=== PATIENT | male | born 1980 | race Hispanic/Latino ===

== ENCOUNTER 2024-09-10 20:40 | Inpatient (IN) | payer BC ==
[~2024-09-10] VITALS: Ht 172.7 cm; Wt 99.8 kg
[2024-09-10] MEDS: 0.9%NACL 1000ML 1,000 ML IV SCH (01:00)
[2024-09-10] MEDS: NOREPINEPHRIN 4MG/NS 250ML 250 ML IV ONE ×2 (20:49→23:28)
[2024-09-10 21:28] LABS: BASOPHILS # (AUTO) 0.01 K/uL (0.00-0.20); BASOPHILS % (AUTO) 0.3 % (0.0-5.0); HEMATOCRIT 41.3 % (42-54); IMMATURE GRANULOCYTE ABSOLUTE 0.01 K/uL (0-1); LYMPHOCYTES # (AUTO) 1.1 K/uL (1.0-4.8); LYMPHOCYTES % (AUTO) 32.9 % (21.0-51.0); MEAN CORPUSCULAR HEMOGLOBIN 35.1 pg (27.0-33.0); MEAN CORPUSCULAR HGB CONC 36.1 g/dL (32.0-36.0); MEAN CORPUSCULAR VOLUME 97.2 fL (79-99); MONOCYTES # (AUTO) 0.3 K/uL (0.1-1.0); MONOCYTES % (AUTO) 8.5 % (3.0-13.0); NEUTROPHILS # (AUTO) 1.9 K/uL (1.8-7.7); PLATELET COUNT (AUTO) 130 K/uL (130-400); RED BLOOD CELL COUNT(AUTO) 4.25 MIL/uL (4.50-6.20); RED CELL DISTRIBUTION WIDTH 11.9 % (11.0-15.5); WHITE BLOOD COUNT (AUTO) 3.2 K/uL (4.8-10.8)
[2024-09-10 21:32] LABS: ABG BASE EXCESS -24.6 mmol/L (-2.0-3.0); ABG OXYGEN SATURATION 91.6 % (94.0-98.0); ABG PCO2 87 mmHg (35-48); ABG PH 6.758 (7.350-7.450); CARBON MONOXIDE 0.5 % (0.5-1.5); DEVICE COMMENT LEFT RAD; HHb 8.3; PO2, ARTERIAL BG 105.7 mmHg (83.0-108.0); VENT MODE, BG AC (ROOM AIR)
[2024-09-10 21:35] VITALS: O2SAT 95
[2024-09-10 21:46] LABS: CREATININE 3.7 mg/dL (0.5-1.3)
[2024-09-10 21:47] LABS: POTASSIUM 2.3 mmol/L (3.5-5.1)
[2024-09-10] MEDS: SODIUM BICARB 50MEQ 50ML VIAL IV ONE ×4 (21:55→23:33)
[2024-09-10 21:56] LABS: INR 1.44 (0.85-1.15); PROTHROMBIN TIME 15.1 SEC (9.6-11.6)
[2024-09-10] MEDS: NOREPINEPHRIN 4MG/NS 250ML 250 ML IV SCH (21:56)
[2024-09-10 21:57] LABS: PARTIAL THROMBOPLASTIN TIME 54.4 SEC (26.3-35.5)
[2024-09-10] MEDS ORDERED: POTASSIUM CHLORIDE IV SCH (22:00)
[2024-09-10] MEDS ORDERED: [UNRECOGNIZED DRUG - OTHER] IV SCH (22:00)
[2024-09-10 22:06] LABS: SARS-CoV-2, RNA, NAAT NEGATIVE SARS CoV-2 (NEGATIVE)
[2024-09-10 22:09] LABS: INFLUENZA TYPE A Negative For Type A (NEGATIVE); INFLUENZA TYPE B Negative For Type B (NEGATIVE)
[2024-09-10 22:24] LABS: BAND NEUTROPHILS % (MANUAL) 4 % (0-2); LYMPHOCYTES % (MANUAL) 31 % (22-44); MAN.DIFF COMMENT-IMPRESSION MANUAL DIFFERENTIAL; MONOCYTES % (MANUAL) 31 % (2-9); REACTIVE LYMPHOCYTES 5 % (0-0); SEGMENTED NEUTROPHILS % 29 % (40-70); TOTAL CELLS COUNTED 100
[2024-09-10] MEDS ORDERED: phenylEPHRINE HCL 100 MG in 0.9% NACL 250ML 250 ML IV SCH (22:30)
[2024-09-10] MEDS: phenylEPHRINE HCL 50 MG in 0.9% NACL 250ML 250 ML IV PRN (22:36)
[2024-09-10] MEDS: PoTASSium chloRIDE 20MEQ/100ML 100 ML IV ONE ×2 (22:36→23:12)
[2024-09-10] MEDS: VASOpressin 20 UNITS/ML 1ML Vi 40 UNITS in 0.9%NACL 50ML 40 ML IV SCH (22:38)
[2024-09-10] MEDS: NOREPINEPHRINE BITARTRATE 32 MG in 0.9% NACL 250ML 250 ML IV SCH (22:42)
[2024-09-10] MEDS: IpraTROPium/alBUTERol SULFATE 3 ML SOLUTION IH ONE ×2 (22:43)
[2024-09-10] MEDS: hydroCORTisone SOD SUCCINATE 100 MG/2 ML VIAL IV ONE (22:44)
[2024-09-10] MEDS: ALBUMIN (HUMAN) 25% 50 ML IV SCH (22:44)
[2024-09-10] MEDS: SODIUM BICARB 8.4% 50ML SYRING 150 MEQ in DEXTROSE 5%-WATER 1,000 ML IVP SCH (22:55)
[2024-09-10] MEDS ORDERED: ondanSETRON 4MG INJ IVP PRN (23:00)
[2024-09-10] MEDS ORDERED: acetaMINOPHEN 325 MG TAB PO PRN (23:00)
[2024-09-10] MEDS ORDERED: TEMAZepam 15 MG CAPSULE PO PRN (23:00)
[2024-09-10] MEDS ORDERED: LACTULOSE 20 GM/30 ML UDCUP PO PRN (23:00)
[2024-09-10] MEDS ORDERED: doCUSate SODIUM 100 MG CAP PO PRN (23:00)
[2024-09-10] MEDS ORDERED: acetaMINOPHEN 650 MG SUPPOSITORY RC PRN (23:00)
[2024-09-10 23:01] VITALS: PULSE 110; RESP 22
[2024-09-10] MEDS: ALBUTEROL 0.083% 2.5 MG/3 ML INH IH SCH (23:01)
[2024-09-10] MEDS: IpraTROPium 0.5 MG/2.5 ML INH IH SCH (23:01)
[2024-09-10 23:02] VITALS: PULSE 113; RESP 22
[2024-09-10 23:13] LABS: ABG BASE EXCESS -18.8 mmol/L (-2.0-3.0); ABG HCO3 17.1 mmol/L (21.0-28.0); ABG OXYGEN SATURATION 80.6 % (94.0-98.0); ABG PCO2 104 mmHg (35-48); ABG PH 6.835 (7.350-7.450); CARBON MONOXIDE 0.1 % (0.5-1.5); DEVICE COMMENT A LINE; HHb 19.2; PO2, ARTERIAL BG 71.5 mmHg (83.0-108.0); VENT MODE, BG AC (ROOM AIR)
[2024-09-10] MEDS: VASOpressin 20 UNITS/ML 1ML VIAL ONE (23:16)
[2024-09-10] MEDS: phenylEPHRINE HCL 10 MG/ML 1ML VIAL IV ONE (23:28)
[2024-09-10] MEDS ORDERED: MAGNESIUM 2GM PREMIX 50ML 50 ML IV SCH (23:30)
[2024-09-10] MEDS: EPINEPHrine PF 1MG (1:1,000) 10 MG in 0.9% NACL 250ML 250 ML IV SCH (23:30)
[2024-09-10] MEDS: ceFEPime HCL 1 GM VIAL IVPB SCH (23:32)
[2024-09-10] MEDS: TRANEXAMIC ACID 1000MG/10ML IV STA (23:32)
[2024-09-10 23:35] VITALS: TEMP 95.3
[2024-09-10 23:54] VITALS: BP 157/114; PULSE 123; RESP 28; TEMP 99.1
[2024-09-10 23:58] VITALS: BP_SYST 137; BP_SYST 89; BP_DIAS 70; BP_DIAS 84; PULSE 122; RESP 28
[2024-09-11] VITALS (23 sets, daily range): BP systolic 9–159; BP diastolic 8–96; PULSE 28–122; RESP 4–30; O2SAT 45–85
[2024-09-11] MEDS ORDERED: VECURONIUM 10MG/10ML 50 MG in 0.9%NACL 50ML 50 ML IV SCH
[2024-09-11] MEDS: ALBUMIN (HUMAN) 5% 250 ML IV STA (00:35)
[2024-09-11] MEDS: PANTOPrazole 40 MG/VIAL IVP ONE (00:35)
[2024-09-11 00:52] LABS: ABG BASE EXCESS -14.7 mmol/L (-2.0-3.0); ABG HCO3 20.8 mmol/L (21.0-28.0); ABG OXYGEN SATURATION 77.7 % (94.0-98.0); ABG PCO2 111 mmHg (35-48); ABG PH 6.891 (7.350-7.450); CARBON MONOXIDE 0.9 % (0.5-1.5); DEVICE COMMENT ALINE; PO2, ARTERIAL BG 62.1 mmHg (83.0-108.0)
[2024-09-11 00:59] LABS: BASOPHILS # (AUTO) 0.02 K/uL (0.00-0.20); BASOPHILS % (AUTO) 0.7 % (0.0-5.0); EOSINOPHILS # (AUTO) 0.02 K/uL (0.00-0.70); EOSINOPHILS % (AUTO) 0.7 % (0.0-8.0); HEMATOCRIT 35.9 % (42-54); IMMATURE GRANULOCYTE ABSOLUTE 0.02 K/uL (0-1); LYMPHOCYTES # (AUTO) 1.8 K/uL (1.0-4.8); LYMPHOCYTES % (AUTO) 64.1 % (21.0-51.0); MEAN CORPUSCULAR HEMOGLOBIN 35.4 pg (27.0-33.0); MEAN CORPUSCULAR HGB CONC 36.5 g/dL (32.0-36.0); MONOCYTES # (AUTO) 0.1 K/uL (0.1-1.0); MONOCYTES % (AUTO) 4.5 % (3.0-13.0); NEUTROPHILS # (AUTO) 0.8 K/uL (1.8-7.7); NEUTROPHILS % (AUTO) 29.3 % (40.0-77.0); NUCLEATED RED BLOOD CELLS 2.1 % (0.0-0.19); PLATELET COUNT (AUTO) 103 K/uL (130-400); RED CELL DISTRIBUTION WIDTH 11.9 % (11.0-15.5); WHITE BLOOD COUNT (AUTO) 2.9 K/uL (4.8-10.8)
[2024-09-11 01:17] LABS: ALBUMIN 1.9 g/dL (3.5-5.0); B-TYPE NATRIURETIC PEPTIDE 1110 pg/mL (0-100); BILIRUBIN,TOTAL 2.2 mg/dL (0.2-1.0); CREATININE 4.4 mg/dL (0.5-1.3); MAGNESIUM 2.1 mg/dL (1.80-2.40); TOTAL PROTEIN, SERUM 4.8 g/dL (6.0-8.3)
[2024-09-11] MEDS: PoTASSium chloRIDE 20MEQ/100ML 100 ML IV SCH (01:28)
[2024-09-11] MEDS ORDERED: ALBUMIN (HUMAN) 5% 500 ML IV SCH (01:30)
[2024-09-11] MEDS ORDERED: FENTanyl 2500MCG+NS 250ML 250 ML IV SCH (01:30)
[2024-09-11] MEDS ORDERED: dexmedeTOMIDine 400MCG/NS100ML IV SCH (01:30)
[2024-09-11] MEDS: Solu-medROL 40MG VIAL IVP SCH (01:38)
[2024-09-11 01:40] LABS: POTASSIUM 2.9 mmol/L (3.5-5.1)
[2024-09-11] MEDS: SODIUM BICARB 50MEQ 50ML VIAL IV ONE ×2 (01:43→02:15)
[2024-09-11 02:05] LABS: ABG BASE EXCESS -11.1 mmol/L (-2.0-3.0); ABG HCO3 21.5 mmol/L (21.0-28.0); ABG OXYGEN SATURATION 81.6 % (94.0-98.0); ABG PCO2 89 mmHg (35-48); ABG PH 7.004 (7.350-7.450); CARBON MONOXIDE 0.1 % (0.5-1.5); DEVICE COMMENT ALINE; HHb 18.3; PO2, ARTERIAL BG 61.1 mmHg (83.0-108.0); VENT MODE, BG AC (ROOM AIR)
[2024-09-11] MEDS: 0.9%NACL 1000ML 1,000 ML IV ONE (02:12)
[2024-09-11] MEDS: TRANEXAMIC ACID 1000MG/10ML IJ STA (02:12)
[2024-09-11] MEDS: LORazepam 2 MG/ML 1 ML VIAL ONE (02:37)
[2024-09-11] MEDS: morPHINE 4 MG SYG ONE (02:37)
[2024-09-11] MEDS: LORazepam 2 MG/ML 1 ML VIAL IVP ONE (02:41)
[2024-09-11] MEDS: morPHINE 4 MG SYG IM ONE (02:41)
[2024-09-11] MEDS ORDERED: INSULIN humuLIN R 100 UNIT/ML 3ML SQ SCH (07:30)
== END 2024-09-11 03:30 | DRG 871 ==
LOC: EDH 20:40 → EDHIP 20:41 → EEVIPCON 20:41 → 2CV 09-11 00:16
PROVIDERS: ADMIT Internal Medicine; ATTEND Internal Medicine
PROC: 03HC33Z Insertion of Infusion Device into Left Radial Artery, Percutaneous Approach (ICD-10-PCS; principal; 2024-09-10)
PROC: 0BH17EZ Insertion of Endotracheal Airway into Trachea, Via Natural or Artificial Opening (ICD-10-PCS; 2024-09-10)
PROC: 5A1935Z Respiratory Ventilation, Less than 24 Consecutive Hours (ICD-10-PCS; 2024-09-10)
PROC: 06HY33Z Insertion of Infusion Device into Lower Vein, Percutaneous Approach (ICD-10-PCS; 2024-09-10)
DX: A41.9 Sepsis, unspecified organism (principal); I21.4 Non-ST elevation (NSTEMI) myocardial infarction; J69.0 Pneumonitis due to inhalation of food and vomit; J96.01 Acute respiratory failure with hypoxia; R65.21 Severe sepsis with septic shock; E87.4 Mixed disorder of acid-base balance; G93.1 Anoxic brain damage, not elsewhere classified; I47.10 Supraventricular tachycardia, unspecified; J96.12 Chronic respiratory failure with hypercapnia; N17.9 Acute kidney failure, unspecified; Z51.5 Encounter for palliative care; Z66 Do not resuscitate; Z68.33 Body mass index [BMI] 33.0-33.9, adult; Z20.822 Contact with and (suspected) exposure to COVID-19; E66.9 Obesity, unspecified; E87.6 Hypokalemia; H57.04 Mydriasis; I46.9 Cardiac arrest, cause unspecified; R57.0 Cardiogenic shock; F14.10 Cocaine abuse, uncomplicated; F10.10 Alcohol abuse, uncomplicated; Y90.9 Presence of alcohol in blood, level not specified
CPT/HCPCS: 31500; 36415; 36556; 36600; 51702; 71045; 80048; 80053; 82435; 82803; 82947; 83605; 83735; 83880; 84132; 84295; 84484; 85018; 85025; 85610; 85730; 87040; 87071; 87086; 87186; 87205; 87635; 87804; 92950; 93005; 94002; 94003; 94640; 94664; G0378; J0171; J0692; J1720; J2060; J2270; J2371; J2470; J2919; J3010; J3475; J3480; J3490; J7050; J7070; P9045; P9047